=== PATIENT | female | born 1955 | race African-American/Black ===

== ENCOUNTER 2016-09-30 12:57 | Inpatient (IN) | payer OTHER ==
[2016-09-30 13:47] VITALS: BMI 27.7
--- NOTE | 2016-09-30 17:31 | HP ---
COWS - Scale Resting Pulse: 0= [place] 80 or Below Sweatin=Flushed/Facial Moisture Restless Observation: 1= Difficult to Sit Still Pupil Size: 1= Pupils >than Normal Bone or Joint Aches: 2= Severe Diffuse Aches Runny Nose/ Eye Tearin= Nasal Congestion GI Upset > 30mins: 2= Nausea/Diarrhea Tremor Observation: 1= Tremor [place], Not Seen Yawning Observation: 0= None Anxiety or Irritability: 2=Irritable/Anxious Goose Flesh Skin: 0=Smooth Skin COWS Score: 12 CIWA Score - CIWA Score Nausea/Vomitin Muscle Tremors: 2 Agitation: 3 Paroxysmal Sweats: 3 Orientation: 0-Oriented Tacttile Disturbances: 2-Mild Itch/Numbness/Burn Auditory Disturbances: 0-None Visual Disturbances: 0-None Headache: 0-None Present Admission ROS BHS - HPI Chief Complaint: I need help to stop using heroin and alcohol. Allergies/Adverse Reactions: Allergies Allergy/AdvReac Type Severity Reaction Status Date / Time No Known Allergies Allergy Verified 09/30/16 15:14 History of Present Illness: 60 y/o m pt with a h/o chronic alcoholism and heroin dep seeking detox. Exam Limitations: No Limitations - Ebola screening Have you traveled outside of the country in the last 21 days: No Have you had contact with anyone from an Ebola affected area: No Have you been sick,other than usual withdrawal symptoms: No Do you have a fever: No - Review of Systems Constitutional: Loss of Appetite, Malaise, Night Sweats, Changes in sleep EENT: reports: Other (has here own corrective lenses) Respiratory: reports: Wheezing Cardiac: reports: No Symptoms Reported GI: reports: Diarrhea, Nausea : reports: No Symptoms Reported Musculoskeletal: reports: Back Pain Integumentary: reports: No Symptoms Reported Neuro: reports: Tremors Endocrine: reports: No Symptoms Reported Hematology: reports: No Symptoms Reported Psychiatric: reports: Agitated, Anxious, Depressed Other Systems: Reviewed and Negative Patient History - Patient Medical History Hx Anemia: No Hx Asthma: Yes Hx Chronic Obstructive Pulmonary Disease (COPD): No Hx Cancer: No Hx Cardiac Disorders: No Hx Congestive Heart Failure: No Hx Hypertension: Yes (Not currently on meds.) Hx Hypercholesterolemia: No Hx Pacemaker: No HX Cerebrovascular Accident: No Hx Seizures: No Hx Dementia: No Hx Diabetes: No Hx Gastrointestinal Disorders: No Hx Liver Disease: No Hx Genitourinary Disorders: No Hx Sexually Transmitted Disorders: No Hx Renal Disease (ESRD): No Hx Thyroid Disease: No Hx Human Immunodeficiency Virus (HIV): No Hx Hepatitis C: Yes Hx Depression: Yes (anxiety) Hx Suicide Attempt: No Hx Bipolar Disorder: No Hx Schizophrenia: No - Patient Surgical History Past Surgical History: No Hx Neurologic Surgery: No Hx Cataract Extraction: No Hx Cardiac Surgery: No Hx Lung Surgery: No Hx Breast Surgery: No Hx Breast Biopsy: No Hx Abdominal Surgery: No Hx Appendectomy: No Hx Cholecystectomy: No Hx Genitourinary Surgery: No Hx Section: No Hx Orthopedic Surgery: No Hx Hysterectomy: No Anesthesia Reaction: No - PPD History Previous Implant?: Yes Documented Results: Positive w/o proof Implanted On Prior R Admission?: No PPD to be Administered?: No - Reproductive History Patient is a Female of Child Bearing Age (11 -55 yrs old): No Patient : No - Smoking Cessation Smoking history: Current every day smoker Have you smoked in the past 12 months: Yes Aproximately how many cigarettes per day: 10 Cigars Per Day: 0 Hx Chewing Tobacco Use: No Initiated information on smoking cessation: Yes 'Breaking Loose' booklet given: 09/30/16 - Substance & Tx. History Hx Alcohol Use: Yes Hx Substance Use: Yes Substance Use Type: Alcohol, Cocaine, Heroin Hx Substance Use Treatment: Yes ([facility]) - Substances Abused Heroin Route: Inhalation Frequency: Daily Amount used: 4 BAGS Age of first use: 21 Date of Last Use: 09/29/16 Alcohol Route: Oral Frequency: Daily Amount used: 1/2 [place] Age of first use: 15 Date of Last Use: 09/28/16 Crack Route: Smoking Frequency: Daily Amount used: $40 Age of first use: 21 Date of Last Use: 09/29/16 Family Disease History - Family Disease History Family Disease History: Diabetes: Mother, Brother, Other: Father (WAS AN ALCOHOLIC AND ) Admission Physical Exam BHS - Vital Signs Vital Signs: Vital Signs - 24 hr 09/30/16 13:44 Temperature 97.0 F L Pulse Rate 69 Respiratory 18 Rate Blood Pressure 151/74 60 y/o f pt aox3 in nad ambulating and cooperating with exam . - Physical General Appearance: Yes: Appropriately Dressed, Tremorous, Anxious HEENTM: Yes: EOMI, Normocephalic, Normal Voice, ROSINA, Other (multiple missing teeth) Respiratory: Yes: Chest Non-Tender, Lungs Clear, Normal Breath Sounds, No Respiratory Distress Neck: Yes: Supple, Trachea in good position Breast: Yes: Breast Exam Deferred Cardiology: Yes: Regular Rhythm, Regular Rate, S1, S2 Abdominal: Yes: Non Tender, Flat, Soft, Increased Bowel Sounds, Other (hypo- pigmented patch on left abdomen- yeimi) Genitourinary: Yes: Within Normal Limits, Frequency Back: Yes: Decreased Range of Motion Musculoskeletal: Yes: Back pain, Muscle Pain Extremities: Yes: Tremors Neurological: Yes: home health assistant II-XII NML intact, Fully Oriented, Motor Strength 5/5, Normal Response Integumentary: Yes: Moist Lymphatic: Yes: Within Normal Limits - Diagnostic (1) Alcohol dependence Current Visit: No Status: Acute (2) Asthma Current Visit: Yes Status: Chronic Qualifiers: Asthma severity: mild intermittent Asthma complication type: with status asthmaticus Qualified Code(s): J45.22 - Mild intermittent asthma with status asthmaticus (3) Cocaine abuse Current Visit: Yes Status: Chronic (4) Depression (emotion) Current Visit: Yes Status: Chronic (5) Hepatitis C Current Visit: Yes Status: Chronic Qualifiers: Viral hepatitis chronicity: chronic Hepatic coma status: without hepatic coma Qualified Code(s): B18.2 - Chronic viral hepatitis C (6) Nicotine dependence Current Visit: Yes Status: Chronic Qualifiers: Nicotine product type: cigarettes Substance use status: uncomplicated Qualified Code(s): F17.210 - Nicotine dependence, cigarettes, uncomplicated (7) Opioid dependence with withdrawal Current Visit: Yes Status: Chronic Cleared for Admission [facility] - Detox or Rehab [facility] Level of Care: Medically Managed Detox Regimen/Protocol: Methadone/Librium [facility] Breath Alcohol Content Breath Alcohol Content: 0 Urine Pregancy Test - Result Urine Test Results: Negative- NO Line Present Urine Drug Screen - Results Drug Screen Negative: No Urine Drug Screen Results: VICKY-Cocaine, OPI-Opiates
[2016-09-30] MEDS ORDERED: MAGNESIUM HYDROX 2400MG/30ML ORAL SUSPENSION 30 ML CUP PO PRN (17:46)
[2016-09-30] MEDS ORDERED: IBUPROFEN 400 MG TABLET (FP) PO PRN (17:46)
[2016-09-30] MEDS ORDERED: diphenhydrAMINE HCL 50 MG CAPSULE PO PRN (17:46)
[2016-09-30] MEDS ORDERED: guaiFENesin/D-METHORPHAN HB 10 ML UNIT-DOSE CUPS PO PRN (17:46)
[2016-09-30] MEDS ORDERED: hydrOXYzine PAMOATE 25 MG CAPSULE (FP) PO PRN (17:46)
[2016-09-30] MEDS ORDERED: LOPERAMIDE HCL 2 MG CAPSULE PO PRN (17:46)
[2016-09-30] MEDS ORDERED: MENTHOL/PHENOL 1 EACH UD MM PRN (17:46)
[2016-09-30] MEDS ORDERED: MAG HYDROX/AL HYDROX/SIMETH 30 ML UNIT-DOSE CUP PO PRN (17:46)
[2016-09-30] MEDS ORDERED: P-EPHED 60MG/TRIPROLIDI 2.5MG TABLET PO PRN (17:46)
[2016-09-30] MEDS ORDERED: chlordiazePOXIDE HCL 25 MG CAPSULE PO PRN (17:46)
[2016-09-30] MEDS ORDERED: NICOTINE POLACRILEX 4 MG GUM BC PRN (17:46)
[2016-09-30] MEDS ORDERED: MAGNESIUM CITRATE 300 ML BOTTLE PO PRN (17:46)
[2016-09-30] MEDS ORDERED: ACETAMINOPHEN 325 MG TABLET (FP) PO PRN (17:46)
[2016-09-30] MEDS ORDERED: ALBUTEROL SO4 6.7 GM HFA INHALER IH PRN (17:52)
[2016-09-30] MEDS ORDERED: METHADONE HCL 10 MG TABLET (FOR DETOX USE ONLY) PO ONE ×2 (18:15→23:00)
[2016-09-30] MEDS: chlordiazePOXIDE HCL 25 MG CAPSULE PO SCH ×2 (18:25→22:04)
[2016-09-30] MEDS: THIAMINE HCL 100 MG TABLET (FP) PO SCH (22:03)
[2016-09-30 23:17] LABS: URINE APPEARANCE CLEAR; URINE BILIRUBIN NEGATIVE (NEGATIVE); URINE BLOOD NEGATIVE (NEGATIVE); URINE COLOR LTYELLOW; URINE GLUCOSE (UA) NEGATIVE (NEGATIVE); URINE KETONE NEGATIVE (NEGATIVE); URINE NITRITE NEGATIVE (NEGATIVE); URINE PROTEIN NEGATIVE (NEGATIVE); URINE UROBILINOGEN NEGATIVE E.U./dl (0.2-1.0)
[2016-09-30 23:18] LABS: URINE LEUK ESTERASE TRACE (NEGATIVE)
[2016-09-30 23:21] LABS: URINE BACTERIA RARE /hpf (NONE SEEN); URINE MUCUS RARE; URINE RBC 1 /hpf (0-3); URINE WBC 12 /hpf (3-5)
[2016-10-01] MEDS: chlordiazePOXIDE HCL 25 MG CAPSULE PO SCH ×4 (05:34→22:02)
[2016-10-01] MEDS ORDERED: METHADONE HCL 10 MG TABLET (FOR DETOX USE ONLY) PO SCH (10:00)
[2016-10-01 10:02] LABS: MCH 26.3 pg (25.7-33.7); MCHC 32.6 g/dl (32.0-36.0); MEAN CELL VOLUME 80.6 fl (80-96); MEAN PLT VOLUME 9.6 fl (7.5-11.1); PLATELET COUNT 106 K/MM3 (134-434); RDW 14.1 % (11.6-15.6); WHITE BLOOD COUNT 2.7 K/mm3 (4.0-10.0)
[2016-10-01 10:17] LABS: ALBUMIN 2.8 g/dl (3.4-5.0); ANION GAP 6 (8-16); CALCIUM 8.4 mg/dL (8.5-10.1); CO2 26 mmol/L (21-32); GLUCOSE,RANDOM 105 mg/dL (74-106)
[2016-10-01 10:22] LABS: ALK PHOS 76 U/L (45-117); BILIRUBIN,TOTAL 0.5 mg/dL (0.2-1.0); CREATININE 0.8 mg/dL (0.55-1.02); SGOT/AST 52 U/L (15-37); SGPT/ALT 61 U/L (12-78); TOT PROT 5.8 g/dl (6.4-8.2)
[2016-10-01] MEDS: PRENATAL VITAMINS W/ FOLIC ACID TABLET (FP) PO SCH (10:35)
[2016-10-01] MEDS: NICOTINE 21 MG/24 HOURS TOPICAL PATCH TD SCH (10:36)
--- NOTE | 2016-10-01 13:56 | CONSULT ---
[facility] Psychiatric Consult - Data Date of interview: 10/01/16 Admission source: [facility] Identifying data: The patient is single AA mother of 3 grown children, undomiciled,supported by PA admitted to [address] [place] [address] for detox from heroin and cocaine. Substance Abuse History: REpors using cocaine since her teens,daily,heorin since HS,about 3 bags daily.Reports 2 years of abstinence-longest. Medical History: BA,Hep C,HTN. Psychiatric History: Reports no history of psychiatric hospitalizations,no suicidal attempts.Patient was placed on Seroquel ,Trazodone and other psychotropic medications while in Detox/rehab inpatient treatment.No regular psychiatric follow up.Non compliant with treatment due to her drug habbits.Patient is willing to restart Seroquel 100 mg po hs and TRazodone 100 mg po hs. Physical/Sexual Abuse/Trauma History: denies Mental Status Exam - Mental Status Exam Alert and Oriented to: Time, Place, Person Cognitive Function: Grossly Intact Patient Appearance: Unkempt Mood: Anxious Affect: Mood Congruent, Labile Patient Behavior: Cooperative Speech Pattern: Clear Voice Loudness: Normal Thought Process: Goal Oriented Thought Disorder: Not Present Hallucinations: Denies Suicidal Ideation: Denies Homicidal Ideation: Denies Insight/Judgement: Fair Sleep: Difficulty falling asleep Appetite: Fair Muscle strength/Tone: Normal Gait/Station: Normal Psychiatric Findings - Problem List ([place] 1, 2,3) (1) Asthma Current Visit: Yes Status: Chronic Qualifiers: Asthma severity: mild intermittent Asthma complication type: with status asthmaticus Qualified Code(s): J45.22 - Mild intermittent asthma with status asthmaticus (2) Hepatitis C Current Visit: Yes Status: Chronic Qualifiers: Viral hepatitis chronicity: chronic Hepatic coma status: without hepatic coma Qualified Code(s): B18.2 - Chronic viral hepatitis C (3) Nicotine dependence Current Visit: Yes Status: Chronic Qualifiers: Nicotine product type: cigarettes Substance use status: uncomplicated Qualified Code(s): F17.210 - Nicotine dependence, cigarettes, uncomplicated (4) Alcohol dependence Current Visit: Yes Status: Chronic (5) Opioid dependence Current Visit: Yes Status: Chronic (6) Cocaine dependence Current Visit: Yes Status: Chronic (7) Cellulitis Current Visit: No Status: Acute (8) Substance induced mood disorder Current Visit: Yes Status: Chronic (9) HTN (hypertension) Current Visit: Yes Status: Chronic Qualifiers: Hypertension type: essential hypertension Qualified Code(s): I10 - Essential (primary) hypertension - Initial Treatment Plan Initial Treatment Plan: Restart Trazodone 100 mg po hs and Seroquel 100 mg po hs. Will monitor progress.
--- NOTE | 2016-10-01 15:53 | PN ---
[facility] CIWA - CIWA Score Nausea/Vomitin-No Nausea/No Vomiting Muscle Tremors: 3 Anxiety: 4-Mod. Anxious/Guarded Agitation: 3 Paroxysmal Sweats: 3 Orientation: 0-Oriented Tacttile Disturbances: 0-None Auditory Disturbances: 0-None Visual Disturbances: 0-None Headache: 0-None Present CIWA-Ar Total Score: 13 BHS COWS - Scale Resting Pulse: 0= [place] 80 or Below Sweatin=Flushed/Facial Moisture Restless Observation: 1= Difficult to Sit Still Pupil Size: 0= Normal to Room Light Bone or Joint Aches: 2= Severe Diffuse Aches Runny Nose/ Eye Tearin= Runny Nose/Eyes GI Upset > 30mins: 2= Nausea/Diarrhea Tremor Observation of Outstretched Hands: 2= Slight Tremor Visible Yawning Observation: 1= 1-2x During Session Anxiety or Irritability: 2=Irritable/Anxious Goose Flesh Skin: 0=Smooth Skin COWS Score: 14 S Progress Note (SOAP) Subjective: Sweating,interrupted sleep,anxiety,tremors,body aches,restless Objective: 10/01/16 15:48 Vital Signs - 8 hr 10/01/16 10/01/16 10:00 14:00 Temperature 97.7 F 98.1 F Pulse Rate 77 77 Respiratory 18 16 Rate Blood Pressure 122/88 147/93 Laboratory Last Values WBC 2.7 K/mm3 (4.0-10.0) L 10/01/16 07:00 RBC 5.02 M/mm3 (3.60-5.2) 10/01/16 07:00 Hgb 13.2 GM/dL (10.7-15.3) 10/01/16 07:00 Hct 40.5 % (32.4-45.2) 10/01/16 07:00 MCV 80.6 fl (80-96) 10/01/16 07:00 MCHC 32.6 g/dl (32.0-36.0) 10/01/16 07:00 RDW 14.1 % (11.6-15.6) 10/01/16 07:00 Plt Count 106 K/MM3 (134-434) L 10/01/16 07:00 MPV 9.6 fl (7.5-11.1) 10/01/16 07:00 Sodium 141 mmol/L (136-145) 10/01/16 07:00 Potassium 4.0 mmol/L (3.5-5.1) 10/01/16 07:00 Chloride 109 mmol/L (98-107) H 10/01/16 07:00 Carbon Dioxide 26 mmol/L (21-32) 10/01/16 07:00 Anion Gap 6 (8-16) L 10/01/16 07:00 BUN 13 mg/dL (7-18) D 10/01/16 07:00 Creatinine 0.8 mg/dL (0.55-1.02) 10/01/16 07:00 Creat Clearance w eGFR > 60 (>60) 10/01/16 07:00 Random Glucose 105 mg/dL (74-106) 10/01/16 07:00 Calcium 8.4 mg/dL (8.5-10.1) L 10/01/16 07:00 Total Bilirubin 0.5 mg/dL (0.2-1.0) 10/01/16 07:00 AST 52 U/L (15-37) H 10/01/16 07:00 ALT 61 U/L (12-78) 10/01/16 07:00 Alkaline Phosphatase 76 U/L (45-117) 10/01/16 07:00 Total Protein 5.8 g/dl (6.4-8.2) L 10/01/16 07:00 Albumin 2.8 g/dl (3.4-5.0) L 10/01/16 07:00 Urine Color Ltyellow 09/30/16 22:02 Urine Appearance Clear 09/30/16 22:02 Urine pH 6.0 (5.0-8.0) 09/30/16 22:02 Ur Specific [place] 1.020 (1.005-1.025) 09/30/16 22:02 Urine Protein Negative (NEGATIVE) 09/30/16 22:02 Urine Glucose (UA) Negative (NEGATIVE) 09/30/16 22:02 Urine Ketones Negative (NEGATIVE) 09/30/16 22:02 Urine Blood Negative (NEGATIVE) 09/30/16 22:02 Urine Nitrite Negative (NEGATIVE) 09/30/16 22:02 Urine Bilirubin Negative (NEGATIVE) 09/30/16 22:02 Urine Urobilinogen Negative E.U./dl (0.2-1.0) 09/30/16 22:02 Ur Leukocyte Esterase Trace (NEGATIVE) H 09/30/16 22:02 Urine RBC 1 /hpf (0-3) 09/30/16 22:02 Urine WBC 12 /hpf (3-5) 09/30/16 22:02 Ur Epithelial Cells Moderate /hpf (FEW) 09/30/16 22:02 Urine Bacteria Rare /hpf (NONE SEEN) 09/30/16 22:02 Urine Mucus Rare 09/30/16 22:02 RPR Titer Nonreactive (NONREACTIVE) 10/01/16 07:00 labs noted Assessment: 10/01/16 15:56 Withdrawal sx. Plan: Continue detox
[2016-10-01] MEDS: traZODone HCL 100 MG TABLET (FP) PO SCH (22:02)
[2016-10-01] MEDS: QUEtiapine FUMARATE 100 MG TABLET (FP) PO SCH (22:02)
[2016-10-01] MEDS: THIAMINE HCL 100 MG TABLET (FP) PO SCH (22:03)
[2016-10-02] MEDS: chlordiazePOXIDE HCL 25 MG CAPSULE PO SCH ×2 (05:17→10:17)
[2016-10-02] MEDS: METHADONE HCL 5 MG TABLET (FOR DETOX USE ONLY) PO SCH (10:17)
[2016-10-02] MEDS: PRENATAL VITAMINS W/ FOLIC ACID TABLET (FP) PO SCH (10:17)
[2016-10-02] MEDS: NICOTINE 21 MG/24 HOURS TOPICAL PATCH TD SCH (10:17)
--- NOTE | 2016-10-02 11:28 | PN ---
[facility] CIWA - CIWA Score Nausea/Vomitin Muscle Tremors: 3 Anxiety: 3 Agitation: 2 Paroxysmal Sweats: 1-Minimal Palms Moist Orientation: 0-Oriented Tacttile Disturbances: 1-Very Mild Itch/Numbness Auditory Disturbances: 1-Very Mild Visual Disturbances: 1-Very Mild Sensitivity Headache: 2-Mild CIWA-Ar Total Score: 17 BHS COWS - Scale Resting Pulse: 1= [place] 81-100 Sweatin= Chills/Flushing Restless Observation: 3= Extraneous Movement Pupil Size: 1= Pupils >than Normal Bone or Joint Aches: 2= Severe Diffuse Aches Runny Nose/ Eye Tearin= Runny Nose/Eyes GI Upset > 30mins: 3= Vomiting/Diarrhea Tremor Observation of Outstretched Hands: 2= Slight Tremor Visible Yawning Observation: 1= 1-2x During Session Anxiety or Irritability: 2=Irritable/Anxious Goose Flesh Skin: 0=Smooth Skin COWS Score: 18 [facility] Progress Note (SOAP) Subjective: ALERT,IRRITABLE,ANXIOUS,INTERRUPTED SLEEP,TREMOR,PAIN IN THE BODY AND BACK Objective: 10/02/16 11:26 Vital Signs Temperature 97.5 F L 10/02/16 10:18 Pulse Rate 83 10/02/16 10:18 Respiratory Rate 16 10/02/16 10:18 Blood Pressure 132/81 10/02/16 10:18 O2 Sat by Pulse Oximetry (%) Laboratory Last Values WBC 2.7 K/mm3 (4.0-10.0) L 10/01/16 07:00 RBC 5.02 M/mm3 (3.60-5.2) 10/01/16 07:00 Hgb 13.2 GM/dL (10.7-15.3) 10/01/16 07:00 Hct 40.5 % (32.4-45.2) 10/01/16 07:00 MCV 80.6 fl (80-96) 10/01/16 07:00 MCHC 32.6 g/dl (32.0-36.0) 10/01/16 07:00 RDW 14.1 % (11.6-15.6) 10/01/16 07:00 Plt Count 106 K/MM3 (134-434) L 10/01/16 07:00 MPV 9.6 fl (7.5-11.1) 10/01/16 07:00 Sodium 141 mmol/L (136-145) 10/01/16 07:00 Potassium 4.0 mmol/L (3.5-5.1) 10/01/16 07:00 Chloride 109 mmol/L (98-107) H 10/01/16 07:00 Carbon Dioxide 26 mmol/L (21-32) 10/01/16 07:00 Anion Gap 6 (8-16) L 10/01/16 07:00 BUN 13 mg/dL (7-18) D 10/01/16 07:00 Creatinine 0.8 mg/dL (0.55-1.02) 10/01/16 07:00 Creat Clearance w eGFR > 60 (>60) 10/01/16 07:00 Random Glucose 105 mg/dL (74-106) 10/01/16 07:00 Calcium 8.4 mg/dL (8.5-10.1) L 10/01/16 07:00 Total Bilirubin 0.5 mg/dL (0.2-1.0) 10/01/16 07:00 AST 52 U/L (15-37) H 10/01/16 07:00 ALT 61 U/L (12-78) 10/01/16 07:00 Alkaline Phosphatase 76 U/L (45-117) 10/01/16 07:00 Total Protein 5.8 g/dl (6.4-8.2) L 10/01/16 07:00 Albumin 2.8 g/dl (3.4-5.0) L 10/01/16 07:00 Urine Color Ltyellow 09/30/16 22:02 Urine Appearance Clear 09/30/16 22:02 Urine pH 6.0 (5.0-8.0) 09/30/16 22:02 Ur Specific [place] 1.020 (1.005-1.025) 09/30/16 22:02 Urine Protein Negative (NEGATIVE) 09/30/16 22:02 Urine Glucose (UA) Negative (NEGATIVE) 09/30/16 22:02 Urine Ketones Negative (NEGATIVE) 09/30/16 22:02 Urine Blood Negative (NEGATIVE) 09/30/16 22:02 Urine Nitrite Negative (NEGATIVE) 09/30/16 22:02 Urine Bilirubin Negative (NEGATIVE) 09/30/16 22:02 Urine Urobilinogen Negative E.U./dl (0.2-1.0) 09/30/16 22:02 Ur Leukocyte Esterase Trace (NEGATIVE) H 09/30/16 22:02 Urine RBC 1 /hpf (0-3) 09/30/16 22:02 Urine WBC 12 /hpf (3-5) 09/30/16 22:02 Ur Epithelial Cells Moderate /hpf (FEW) 09/30/16 22:02 Urine Bacteria Rare /hpf (NONE SEEN) 09/30/16 22:02 Urine Mucus Rare 09/30/16 22:02 RPR Titer Nonreactive (NONREACTIVE) 10/01/16 07:00 Assessment: 10/02/16 11:26 WITHDRAWAL SYMPTOM Plan: CONTINUE DETOX,WBC IS 2700,LEUKOPENIA,REPEAT CBC IN AM
[2016-10-02] MEDS: chlordiazePOXIDE 5 MG CAPSULE PO SCH ×2 (16:44→22:12)
[2016-10-02] MEDS: traZODone HCL 100 MG TABLET (FP) PO SCH (22:12)
[2016-10-02] MEDS: THIAMINE HCL 100 MG TABLET (FP) PO SCH (22:12)
[2016-10-02] MEDS: QUEtiapine FUMARATE 100 MG TABLET (FP) PO SCH (22:12)
[2016-10-03] MEDS: chlordiazePOXIDE 5 MG CAPSULE PO SCH ×2 (05:34→10:23)
[2016-10-03] MEDS: PRENATAL VITAMINS W/ FOLIC ACID TABLET (FP) PO SCH (10:23)
[2016-10-03] MEDS: METHADONE HCL 5 MG TABLET (FOR DETOX USE ONLY) PO SCH (10:23)
[2016-10-03] MEDS: NICOTINE 21 MG/24 HOURS TOPICAL PATCH TD SCH (10:23)
[2016-10-03 10:42] LABS: MCHC 32.2 g/dl (32.0-36.0); MEAN CELL VOLUME 80.7 fl (80-96); RDW 14.6 % (11.6-15.6); WHITE BLOOD COUNT 3.8 K/mm3 (4.0-10.0)
[2016-10-03 11:30] LABS: PLATELET COUNT 62 K/MM3 (134-434); PLATELET ESTIMATE DECREASED (NORMAL)
--- NOTE | 2016-10-03 12:19 | PN ---
BHS Progress Note (SOAP) Subjective: Sweating, Fatigue, Lower Back Ache. Objective: PT. A & O X 2 (DISORIENTED ABOUT DAY / DATE). PT. OBSERVED AMBULATING ON UNIT. NO ACUTE DISTRESS. 10/03/16 12:15 Vital Signs Temperature 97.7 F 10/03/16 06:00 Pulse Rate 78 10/03/16 06:00 Respiratory Rate 18 10/03/16 06:00 Blood Pressure 114/78 10/03/16 06:00 O2 Sat by Pulse Oximetry (%) Laboratory Tests 09/30/16 10/01/16 10/01/16 22:02 07:00 07:00 WBC 2.7 L RBC 5.02 Hgb 13.2 Hct 40.5 MCV 80.6 MCHC 32.6 RDW 14.1 Plt Count 106 L MPV 9.6 Platelet Estimate Platelet Comment Sodium 141 Potassium 4.0 Chloride 109 H Carbon Dioxide 26 Anion Gap 6 L BUN 13 D Creatinine 0.8 Creat Clearance w eGFR > 60 Random Glucose 105 Calcium 8.4 L Total Bilirubin 0.5 AST 52 H ALT 61 Alkaline Phosphatase 76 Total Protein 5.8 L Albumin 2.8 L Urine Color Ltyellow Urine Appearance Clear Urine pH 6.0 Ur Specific [place] 1.020 Urine Protein Negative Urine Glucose (UA) Negative Urine Ketones Negative Urine Blood Negative Urine Nitrite Negative Urine Bilirubin Negative Urine Urobilinogen Negative Ur Leukocyte Esterase Trace H Urine RBC 1 Urine WBC 12 Ur Epithelial Cells Moderate Urine Bacteria Rare Urine Mucus Rare RPR Titer 10/01/16 10/03/16 07:00 07:40 WBC 3.8 L D RBC 5.19 Hgb 13.5 Hct 41.8 MCV 80.7 MCHC 32.2 RDW 14.6 Plt Count 62 L D MPV 10.0 Platelet Estimate Decreased Platelet Comment No clumping noted Sodium Potassium Chloride Carbon Dioxide Anion Gap BUN Creatinine Creat Clearance w eGFR Random Glucose Calcium Total Bilirubin AST ALT Alkaline Phosphatase Total Protein Albumin Urine Color Urine Appearance Urine pH Ur Specific [place] Urine Protein Urine Glucose (UA) Urine Ketones Urine Blood Urine Nitrite Urine Bilirubin Urine Urobilinogen Ur Leukocyte Esterase Urine RBC Urine WBC Ur Epithelial Cells Urine Bacteria Urine Mucus RPR Titer Nonreactive LABS NOTED. RESULTS OF REPEAT CBC DRAWN THIS AM NOTED. 10/03/16 12:20 Assessment: 10/03/16 12:17 WITHDRAWAL SYMPTOMS. Plan: CONTINUE DETOX. ADVISED PATIENT TO FOLLOW-UP WITH [facility]ATION [facility]INE[facility] AFTER DISCHARGE FOR GENERAL MEDICAL ASSESSMENT AND FOR LOW PLATELET LEVEL.
[2016-10-03] MEDS: chlordiazePOXIDE HCL 10 MG CAPSULE PO SCH ×2 (17:37→22:11)
[2016-10-03] MEDS: traZODone HCL 100 MG TABLET (FP) PO SCH (22:09)
[2016-10-03] MEDS: QUEtiapine FUMARATE 100 MG TABLET (FP) PO SCH (22:09)
[2016-10-03] MEDS: THIAMINE HCL 100 MG TABLET (FP) PO SCH (22:10)
--- NOTE | 2016-10-03 22:19 | EKG ---
Test Reason : Blood Pressure : / mmHG Vent. Rate : 055 BPM Atrial Rate : 055 BPM P-R Int : 144 ms QRS Dur : 082 ms QT Int : 436 ms P-R-T Axes : 062 049 029 degrees QTc Int : 417 ms SINUS BRADYCARDIA WITH MARKED SINUS ARRHYTHMIA OTHERWISE NORMAL ECG WHEN COMPARED WITH ECG OF 17-JUN-2016 20:39, NO SIGNIFICANT CHANGE WAS FOUND Confirmed by BIANCA RUEDA MD ([id number]) on 10/03/2016 10:19:03 PM Referred By: Confirmed By:BIANCA RUEDA MD
[2016-10-04] MEDS: chlordiazePOXIDE HCL 10 MG CAPSULE PO SCH ×2 (07:17→10:17)
--- NOTE | 2016-10-04 09:33 | PN ---
[facility] Progress Note (SOAP) Subjective: alert,irritable,anxious,interrupted sleep, Objective: 10/04/16 09:28 Vital Signs Temperature 96 F L 10/04/16 05:00 Pulse Rate 70 10/04/16 05:00 Respiratory Rate 18 10/04/16 05:00 Blood Pressure 96/52 10/04/16 05:00 O2 Sat by Pulse Oximetry (%) Laboratory Last Values WBC 3.8 K/mm3 (4.0-10.0) L D 10/03/16 07:40 RBC 5.19 M/mm3 (3.60-5.2) 10/03/16 07:40 Hgb 13.5 GM/dL (10.7-15.3) 10/03/16 07:40 Hct 41.8 % (32.4-45.2) 10/03/16 07:40 MCV 80.7 fl (80-96) 10/03/16 07:40 MCHC 32.2 g/dl (32.0-36.0) 10/03/16 07:40 RDW 14.6 % (11.6-15.6) 10/03/16 07:40 Plt Count 62 K/MM3 (134-434) L D 10/03/16 07:40 MPV 10.0 fl (7.5-11.1) 10/03/16 07:40 Platelet Estimate Decreased (NORMAL) 10/03/16 07:40 Platelet Comment No clumping noted 10/03/16 07:40 Sodium 141 mmol/L (136-145) 10/01/16 07:00 Potassium 4.0 mmol/L (3.5-5.1) 10/01/16 07:00 Chloride 109 mmol/L (98-107) H 10/01/16 07:00 Carbon Dioxide 26 mmol/L (21-32) 10/01/16 07:00 Anion Gap 6 (8-16) L 10/01/16 07:00 BUN 13 mg/dL (7-18) D 10/01/16 07:00 Creatinine 0.8 mg/dL (0.55-1.02) 10/01/16 07:00 Creat Clearance w eGFR > 60 (>60) 10/01/16 07:00 Random Glucose 105 mg/dL (74-106) 10/01/16 07:00 Calcium 8.4 mg/dL (8.5-10.1) L 10/01/16 07:00 Total Bilirubin 0.5 mg/dL (0.2-1.0) 10/01/16 07:00 AST 52 U/L (15-37) H 10/01/16 07:00 ALT 61 U/L (12-78) 10/01/16 07:00 Alkaline Phosphatase 76 U/L (45-117) 10/01/16 07:00 Total Protein 5.8 g/dl (6.4-8.2) L 10/01/16 07:00 Albumin 2.8 g/dl (3.4-5.0) L 10/01/16 07:00 Urine Color Ltyellow 09/30/16 22:02 Urine Appearance Clear 09/30/16 22:02 Urine pH 6.0 (5.0-8.0) 09/30/16 22:02 Ur Specific [place] 1.020 (1.005-1.025) 09/30/16 22:02 Urine Protein Negative (NEGATIVE) 09/30/16 22:02 Urine Glucose (UA) Negative (NEGATIVE) 09/30/16 22:02 Urine Ketones Negative (NEGATIVE) 09/30/16 22:02 Urine Blood Negative (NEGATIVE) 09/30/16 22:02 Urine Nitrite Negative (NEGATIVE) 09/30/16 22:02 Urine Bilirubin Negative (NEGATIVE) 09/30/16 22:02 Urine Urobilinogen Negative E.U./dl (0.2-1.0) 09/30/16 22:02 Ur Leukocyte Esterase Trace (NEGATIVE) H 09/30/16 22:02 Urine RBC 1 /hpf (0-3) 09/30/16 22:02 Urine WBC 12 /hpf (3-5) 09/30/16 22:02 Ur Epithelial Cells Moderate /hpf (FEW) 09/30/16 22:02 Urine Bacteria Rare /hpf (NONE SEEN) 09/30/16 22:02 Urine Mucus Rare 09/30/16 22:02 RPR Titer Nonreactive (NONREACTIVE) 10/01/16 07:00 Assessment: 10/04/16 09:30 withdrawal symptom leukopenia and thrombocytopenia probably due to alcohol dependence and also hepatitis c patient hes been seen by pmd and [facility] machine operator in [facility] will follow with her pmd after discharge 10/04/16 09:33 Plan: continue detox,discharge in am
[2016-10-04] MEDS ORDERED: METHADONE HCL 10 MG TABLET (FOR DETOX USE ONLY) PO SCH (10:00)
[2016-10-04] MEDS: NICOTINE 21 MG/24 HOURS TOPICAL PATCH TD SCH (10:18)
[2016-10-04] MEDS: PRENATAL VITAMINS W/ FOLIC ACID TABLET (FP) PO SCH (10:18)
--- NOTE | 2016-10-04 12:08 | PN ---
Psychiatric Progress Note Vital Signs: Vital Signs Period Temp Pulse Resp BP Sys/Patrick Pulse Ox Last 24 Hr 96 F-97.9 F 70-104 16-74 96-129/52-79 Date of Session: 10/04/16 Chief Complaint:: Insomnia HPI: Patient reports not falling asleep well inspite of taking : Trazodone 100mg p[o0q gs. Seroquel 100mg pom qhs Current Medications: Active Medications Generic Name Dose Route Start Last Admin Trade Name Freq PRN Reason Stop Dose Admin Acetaminophen 650 mg 09/30/16 17:46 10/02/16 10:18 Tylenol - PO 650 mg Q4H PRN Administration FEVER OR PAIN Al Hydroxide/Mg Hydroxide 30 ml 09/30/16 17:46 Mylanta Oral Suspension - PO Q6H PRN DYSPEPSIA Albuterol Sulfate 2 puff 09/30/16 17:52 Ventolin Hfa Inhaler - IH Q4H PRN SHORT OF BREATH/WHEEZING Diphenhydramine HCl 50 mg 09/30/16 17:46 Benadryl - PO HSMR1 PRN INSOMNIA Eucalyptus/Menthol/Phenol/Sorbitol 1 each 09/30/16 17:46 Cepastat Lozenge - MM Q4H PRN SORE THROAT Guaifenesin 10 ml 09/30/16 17:46 Robitussin Dm - PO Q6H PRN COUGH Hydroxyzine Pamoate 25 mg 09/30/16 17:46 Vistaril - PO Q4H PRN AGITATION Ibuprofen 400 mg 09/30/16 17:46 Motrin - PO Q6H PRN SEVERE PAIN Loperamide HCl 4 mg 09/30/16 17:46 Imodium - PO Q6H PRN DIARRHEA Magnesium Citrate 300 ml 09/30/16 17:46 Citroma - PO Q48H PRN CONSTIPATION Magnesium Hydroxide 30 ml 09/30/16 17:46 Milk Of Magnesia - PO DAILY PRN CONSTIPATION Methadone HCl 5 mg 10/05/16 06:00 Dolophine - PO 10/05/16 06:01 DAILY@0600 OLIVIA Nicotine 21 mg 10/01/16 10:00 10/04/16 10:18 Nicoderm Patch - TD Not Given DAILY OLIVIA Nicotine Polacrilex 4 mg 09/30/16 17:46 Nicorette Gum - BC Q2H PRN NICOTINE REPLACEMENT RX Multivit/Folic Acid/Iron 1 tab 10/01/16 10:00 10/04/16 10:18 Vitamins (Sjr) - PO 1 tab DAILY OLIVIA Administration Pseudoephedrine/Triprolidine 1 combo 09/30/16 17:46 Actifed - PO TID PRN NASAL CONGESTION Quetiapine Fumarate 100 mg 10/01/16 22:00 10/03/16 22:09 Seroquel - PO 100 mg HS OLIVIA Administration Thiamine HCl 100 mg 09/30/16 22:00 10/03/16 22:10 Vitamin B1 - PO 100 mg HS OLIVIA Administration Trazodone HCl 100 mg 10/01/16 22:00 10/03/16 22:09 Desyrel - PO 100 mg HS OLIVIA Administration Medication(s) Change(s): Add Benadryl 50mg po qhs prn for insomnia Mental Status Exam - Mental Status Exam Alert and Oriented to: Person Cognitive Function: Fair Patient Appearance: Well Groomed Mood: Apprehensive Affect: Mood Congruent Patient Behavior: Cooperative Speech Pattern: Appropriate Voice Loudness: Normal Thought Process: Circumstantial, Goal Oriented Thought Disorder: Being Controlled Hallucinations: Denies Suicidal Ideation: Denies Homicidal Ideation: Denies Insight/Judgement: Fair Sleep: Difficulty falling asleep Appetite: Weight loss Muscle strength/Tone: Normal Gait/Station: Normal Additional Comments: Add Benadryl 50mg po qhs prn for insomnia Psychiatric Treatment Plan - Problem List (1) Alcohol dependence Current Visit: Yes Qualifiers: Substance use status: uncomplicated Qualified Code(s): F10.20 - Alcohol dependence, uncomplicated (2) Alcohol dependence with uncomplicated withdrawal Current Visit: Yes (3) Cocaine dependence Current Visit: Yes Qualifiers: Substance use status: uncomplicated Qualified Code(s): F14.20 - Cocaine dependence, uncomplicated (4) Opioid dependence with withdrawal Current Visit: Yes (5) Psychoactive substance-induced mood disorder Current Visit: Yes (6) Substance induced mood disorder Current Visit: Yes (7) Cocaine abuse Current Visit: Yes (8) Nicotine dependence Current Visit: Yes Qualifiers: Nicotine product type: cigarettes Substance use status: uncomplicated Qualified Code(s): F17.210 - Nicotine dependence, cigarettes, uncomplicated (9) Opioid dependence Current Visit: Yes (10) Major depressive disorder Current Visit: No Comment: History. Initial treatment plan: Add Benadryl 50mg po qhs prn for insomnia
[2016-10-04] MEDS: THIAMINE HCL 100 MG TABLET (FP) PO SCH (22:19)
[2016-10-04] MEDS: traZODone HCL 100 MG TABLET (FP) PO SCH (22:20)
[2016-10-04] MEDS: QUEtiapine FUMARATE 100 MG TABLET (FP) PO SCH (22:20)
[2016-10-05] MEDS ORDERED: METHADONE HCL 5 MG TABLET (FOR DETOX USE ONLY) PO SCH (06:00)
[2016-10-05 06:37] VITALS: BP 125/86; PULSE 68; TEMP 98.4
--- NOTE | 2016-10-05 08:13 | PN ---
S Progress Note (SOAP) Subjective: alert,no complaint Objective: 10/05/16 08:12 Vital Signs Temperature 98.4 F 10/05/16 06:00 Pulse Rate 68 10/05/16 06:00 Respiratory Rate 18 10/05/16 06:00 Blood Pressure 125/86 10/05/16 06:00 O2 Sat by Pulse Oximetry (%) Assessment: 10/05/16 08:12 detox completed,no withdrawal symptom Plan: discharge today,follow uo with after care program as arrangement
--- NOTE | 2016-10-05 08:15 | DS ---
[facility] Detox Discharge Summary Admission Date: 09/30/16 Discharge Date: 10/05/16 - History Present History: Alcohol Dependence, Cocaine Dependence, Opioid Dependence Additional Comments: follow up with clinic at [facility] Pertinent Past History: asthma hepatitis c nicotine dependence leukopenia thrombocytopenia - Physical Exam Results Vital Signs: Vital Signs Temperature 98.4 F 10/05/16 06:00 Pulse Rate 68 10/05/16 06:00 Respiratory Rate 18 10/05/16 06:00 Blood Pressure 125/86 10/05/16 06:00 O2 Sat by Pulse Oximetry (%) - Treatment Hospital Course: Detox Protocol Followed, Detoxed Safely, Responded well, Discharged Condition Good Patient has Accepted a Rehab Referral to: declined - Medication Discharge Medications: Ambulatory Orders Albuterol Sulfate Inhaler - [Ventolin HFA Inhaler -] 2 puff IH Q4H PRN #1 inhaler 06/23/16 Quetiapine Fumarate [Seroquel] 100 mg PO HS #30 tablet 10/04/16 Trazodone HCl [Desyrel -] 100 mg PO HS #30 tablet 10/04/16 - Diagnosis (1) Leukopenia Current Visit: Yes Status: Acute (2) Alcohol dependence with uncomplicated withdrawal Current Visit: Yes Status: Acute (3) Cocaine dependence Current Visit: Yes Status: Acute Qualifiers: Substance use status: uncomplicated Qualified Code(s): F14.20 - Cocaine dependence, uncomplicated (4) Opioid dependence with withdrawal Current Visit: Yes Status: Acute (5) Asthma Current Visit: Yes Status: Chronic Qualifiers: Asthma severity: mild intermittent Asthma complication type: with status asthmaticus Qualified Code(s): J45.22 - Mild intermittent asthma with status asthmaticus (6) Hepatitis C Current Visit: Yes Status: Chronic Qualifiers: Viral hepatitis chronicity: chronic Hepatic coma status: without hepatic coma Qualified Code(s): B18.2 - Chronic viral hepatitis C (7) Nicotine dependence Current Visit: Yes Status: Chronic Qualifiers: Nicotine product type: cigarettes Substance use status: uncomplicated Qualified Code(s): F17.210 - Nicotine dependence, cigarettes, uncomplicated (8) Thrombocytopenia Current Visit: Yes Status: Acute (9) Psychoactive substance-induced mood disorder Current Visit: Yes Status: Acute (10) Substance induced mood disorder Current Visit: Yes Status: Acute - AMA Did Patient Leave Against Medical Advice: No
== END 2016-10-05 09:40 | disposition home or self-care (01) | DRG 773 ==
LOC: YASAS 12:57 → Y6N 16:37
PROVIDERS: ADMIT Internal Medicine; ATTEND Internal Medicine
PROC: HZ2ZZZZ Detoxification Services for Substance Abuse Treatment (ICD-10-PCS; principal; 2016-09-30)
DX: F11.23 Opioid dependence with withdrawal (principal); F10.230 Alcohol dependence with withdrawal, uncomplicated; F14.20 Cocaine dependence, uncomplicated; F17.210 Nicotine dependence, cigarettes, uncomplicated; F19.24 Other psychoactive substance dependence with psychoactive substance-induced mood disorder; F33.9 Major depressive disorder, recurrent, unspecified; J45.22 Mild intermittent asthma with status asthmaticus; B18.2 Chronic viral hepatitis C; G47.00 Insomnia, unspecified; D69.6 Thrombocytopenia, unspecified; D72.819 Decreased white blood cell count, unspecified
CPT/HCPCS: 36415; 80053; 81003; 81015; 85027; 86593; 93005; 93010

== ENCOUNTER 2018-05-06 17:31 | Inpatient (IN) | payer OTHER ==
[2018-05-06 18:24] VITALS: BMI 26.4
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
[2018-05-06] MEDS ORDERED: MENTHOL/PHENOL 1 EACH UD MM PRN (20:36)
[2018-05-06] MEDS ORDERED: P-EPHED 60MG/TRIPROLIDI 2.5MG TABLET PO PRN (20:36)
[2018-05-06] MEDS ORDERED: IBUPROFEN 400 MG TABLET (FP) PO PRN (20:36)
[2018-05-06] MEDS ORDERED: MAGNESIUM CITRATE 300 ML BOTTLE PO PRN (20:36)
[2018-05-06] MEDS ORDERED: MAGNESIUM HYDROX 2400MG/30ML ORAL SUSPENSION 30 ML CUP PO PRN (20:36)
[2018-05-06] MEDS ORDERED: ACETAMINOPHEN 325 MG TABLET (FP) PO PRN (20:36)
[2018-05-06] MEDS ORDERED: NICOTINE POLACRILEX 2 MG GUM BC PRN (20:36)
[2018-05-06] MEDS ORDERED: LOPERAMIDE HCL 2 MG CAPSULE PO PRN (20:36)
[2018-05-06] MEDS ORDERED: METHADONE HCL 10 MG TABLET (FOR DETOX USE ONLY) PO ONE ×2 (20:36→23:00)
[2018-05-06] MEDS ORDERED: MAG HYDROX/AL HYDROX/SIMETH 30 ML UNIT-DOSE CUP PO PRN (20:36)
[2018-05-06] MEDS ORDERED: guaiFENesin/D-METHORPHAN HB 10 ML UNIT-DOSE CUPS PO PRN (20:36)
[2018-05-06] MEDS ORDERED: TRIMETHOBENZAMIDE HCL 200MG/2ML INJ IM PRN (20:39)
[2018-05-06] MEDS ORDERED: cloNIDine HCL 0.1 MG TABLET PO ONE (20:39)
[2018-05-06] MEDS ORDERED: MELATONIN 5 MG TABLETS PO PRN (22:00)
[2018-05-06] MEDS: ALBUTEROL SO4 8 GM HFA INHALER IH PRN (22:36)
[2018-05-06] MEDS: THIAMINE HCL 100 MG TABLET (FP) PO SCH (22:58)
[2018-05-06] MEDS: diazePAM 5 MG TABLET PO PRN (22:59)
[2018-05-07] MEDS ORDERED: METHADONE HCL 10 MG TABLET (FOR DETOX USE ONLY) PO ONE (10:00)
[2018-05-07] MEDS: LISINOPRIL 10 MG TABLET (FP) PO SCH (10:11)
[2018-05-07] MEDS: PRENATAL VITAMINS W/ FOLIC ACID TABLET (FP) PO SCH (10:11)
[2018-05-07] MEDS: NICOTINE 14 MG/24 HOURS TOPICAL PATCH TD SCH (10:11)
[2018-05-07] MEDS: diazePAM 5 MG TABLET PO PRN ×2 (10:13→22:29)
[2018-05-07 11:16] LABS: ALBUMIN 3.1 g/dl (3.4-5.0); ALK PHOS 91 U/L (45-117); ANION GAP 8 MMOL/L (8-16); BILIRUBIN,TOTAL 0.4 mg/dL (0.2-1); BLOOD UREA NITROGEN 26 mg/dL (7-18); CALCIUM 8.3 mg/dL (8.5-10.1); CHLORIDE 107 mmol/L (98-107); CO2 27 mmol/L (21-32); CREATININE 1.1 mg/dL (0.55-1.3); GLUCOSE,RANDOM 91 mg/dL (74-106); POTASSIUM 3.8 mmol/L (3.5-5.1); SGOT/AST 39 U/L (15-37); SGPT/ALT 46 U/L (13-61); SODIUM 142 mmol/L (136-145); TOT PROT 6.4 g/dl (6.4-8.2)
[2018-05-07 11:22] LABS: MCH 26.7 pg (25.7-33.7); MCHC 33.4 g/dl (32.0-36.0); MEAN CELL VOLUME 80.1 fl (80-96); MEAN PLT VOLUME 9.5 fl (7.5-11.1); PLATELET COUNT 146 K/MM3 (134-434); RDW 14.4 % (11.6-15.6)
--- NOTE | 2018-05-07 12:17 | PN ---
BHS COWS - Scale Resting Pulse: 0= [place] 80 or Below Sweatin= Chills/Flushing Restless Observation: 1= Difficult to Sit Still Pupil Size: 1= Pupils >than Normal Bone or Joint Aches: 2= Severe Diffuse Aches Runny Nose/ Eye Tearin= Nasal Congestion GI Upset > 30mins: 1= Stomach Cramp Tremor Observation of Outstretched Hands: 1= Tremor [place], Not Seen Yawning Observation: 1= 1-2x During Session Anxiety or Irritability: 1=Feels Anxious/Irritable Goose Flesh Skin: 0=Smooth Skin COWS Score: 10 BHS Progress Note (SOAP) Subjective: body aches joints pain tremor sweating trouble sleep throughout the night Objective: 05/07/18 12:16 Vital Signs Temperature 96 F L 05/07/18 09:08 Pulse Rate 90 05/07/18 09:08 Respiratory Rate 20 05/07/18 09:08 Blood Pressure 110/70 05/07/18 09:08 O2 Sat by Pulse Oximetry (%) Laboratory Last Values WBC 4.0 K/mm3 (4.0-10.0) 05/07/18 07:20 RBC 4.50 M/mm3 (3.60-5.2) 05/07/18 07:20 Hgb 12.0 GM/dL (10.7-15.3) 05/07/18 07:20 Hct 36.0 % (32.4-45.2) 05/07/18 07:20 MCV 80.1 fl (80-96) 05/07/18 07:20 MCH 26.7 pg (25.7-33.7) 05/07/18 07:20 MCHC 33.4 g/dl (32.0-36.0) 05/07/18 07:20 RDW 14.4 % (11.6-15.6) 05/07/18 07:20 Plt Count 146 K/MM3 (134-434) D 05/07/18 07:20 MPV 9.5 fl (7.5-11.1) 05/07/18 07:20 Sodium 142 mmol/L (136-145) 05/07/18 07:20 Potassium 3.8 mmol/L (3.5-5.1) 05/07/18 07:20 Chloride 107 mmol/L (98-107) 05/07/18 07:20 Carbon Dioxide 27 mmol/L (21-32) 05/07/18 07:20 Anion Gap 8 MMOL/L (8-16) 05/07/18 07:20 BUN 26 mg/dL (7-18) H 05/07/18 07:20 Creatinine 1.1 mg/dL (0.55-1.3) 05/07/18 07:20 Creat Clearance w eGFR 50.67 (>60) 05/07/18 07:20 Random Glucose 91 mg/dL (74-106) 05/07/18 07:20 Calcium 8.3 mg/dL (8.5-10.1) L 05/07/18 07:20 Total Bilirubin 0.4 mg/dL (0.2-1) 05/07/18 07:20 AST 39 U/L (15-37) H 05/07/18 07:20 ALT 46 U/L (13-61) 05/07/18 07:20 Alkaline Phosphatase 91 U/L (45-117) 05/07/18 07:20 Total Protein 6.4 g/dl (6.4-8.2) 05/07/18 07:20 Albumin 3.1 g/dl (3.4-5.0) L 05/07/18 07:20 lab noted Assessment: 05/07/18 12:16 withdrawal sx Plan: continue detox
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
[2018-05-07] MEDS: THIAMINE HCL 100 MG TABLET (FP) PO SCH (22:29)
[2018-05-07] MEDS: QUEtiapine FUMARATE 100 MG TABLET (FP) PO SCH (22:29)
[2018-05-07] MEDS: ALBUTEROL SO4 8 GM HFA INHALER IH PRN (22:30)
[2018-05-08] MEDS ORDERED: METHADONE HCL 5 MG TABLET (FOR DETOX USE ONLY) PO ONE (10:00)
[2018-05-08] MEDS: LISINOPRIL 10 MG TABLET (FP) PO SCH (10:01)
[2018-05-08] MEDS: PRENATAL VITAMINS W/ FOLIC ACID TABLET (FP) PO SCH (10:01)
[2018-05-08] MEDS: NICOTINE 14 MG/24 HOURS TOPICAL PATCH TD SCH (11:23)
--- NOTE | 2018-05-08 12:19 | PN ---
BHS COWS - Scale Resting Pulse: 1= [place] 81-100 Sweatin= Chills/Flushing Restless Observation: 0= Sits Still Pupil Size: 0= Normal to Room Light Bone or Joint Aches: 0= None Runny Nose/ Eye Tearin= None GI Upset > 30mins: 2= Nausea/Diarrhea Tremor Observation of Outstretched Hands: 0= None Yawning Observation: 1= 1-2x During Session Anxiety or Irritability: 2=Irritable/Anxious Goose Flesh Skin: 3=Piloerection COWS Score: 10 BHS Progress Note (SOAP) Subjective: Nausea, Stomach Cramping, Sweating, H/A, Interrupted Sleep. Objective: PATIENT A & O X 2 (UNCERTAIN ABOUT CURRENT DAY / DATE). PATIENT OBSERVED AMBULATING ON UNIT. IN NO ACUTE DISTRESS. PATIENT DENIES ANY URINARY COMPLAINTS (BURNING, PAIN, FREQUENCY, URGENCY, HESITANCY). 05/08/18 12:15 Vital Signs Temperature 98.7 F 05/08/18 09:17 Pulse Rate 72 05/08/18 09:17 Respiratory Rate 18 05/08/18 09:17 Blood Pressure 112/73 05/08/18 09:17 O2 Sat by Pulse Oximetry (%) Laboratory Tests 05/07/18 05/07/18 05/07/18 07:20 07:20 07:20 WBC 4.0 RBC 4.50 Hgb 12.0 Hct 36.0 MCV 80.1 MCH 26.7 MCHC 33.4 RDW 14.4 Plt Count 146 D MPV 9.5 Sodium 142 Potassium 3.8 Chloride 107 Carbon Dioxide 27 Anion Gap 8 BUN 26 H Creatinine 1.1 Creat Clearance w eGFR 50.67 Random Glucose 91 Calcium 8.3 L Total Bilirubin 0.4 AST 39 H ALT 46 Alkaline Phosphatase 91 Total Protein 6.4 Albumin 3.1 L RPR Titer Nonreactive labs noted. 05/08/18 12:17 Assessment: 05/08/18 12:16 WITHDRAWAL SYMPTOMS. Plan: CONTINUE DETOX. INCREASE DAILY PO FLUID INTAKE. D/C IBUPROFEN AND MAGNESIUM-CONTAINING MEDS. FOR ABNORMAL ADMISSION RENAL LAB VALUES.
[2018-05-08 17:20] LABS: URINE APPEARANCE CLOUDY; URINE BILIRUBIN NEGATIVE (<2.0 mg/dL); URINE COLOR YELLOW; URINE GLUCOSE (UA) NEGATIVE (NEGATIVE); URINE KETONE NEGATIVE (NEGATIVE); URINE LEUK ESTERASE 2+ (NEGATIVE); URINE NITRITE NEGATIVE (NEGATIVE); URINE PROTEIN NEGATIVE (NEGATIVE); URINE UROBILINOGEN 4.0 E.U/dl mg/dL (0.2-1.0)
[2018-05-08 17:30] LABS: EPI CELLS FEW /HPF (FEW); URINE MUCUS RARE
[2018-05-08] MEDS: THIAMINE HCL 100 MG TABLET (FP) PO SCH (22:12)
[2018-05-08] MEDS: QUEtiapine FUMARATE 100 MG TABLET (FP) PO SCH (22:13)
[2018-05-09] MEDS ORDERED: METHADONE HCL 5 MG TABLET (FOR DETOX USE ONLY) PO ONE (10:00)
[2018-05-09] MEDS: NICOTINE 14 MG/24 HOURS TOPICAL PATCH TD SCH (10:11)
[2018-05-09] MEDS: PRENATAL VITAMINS W/ FOLIC ACID TABLET (FP) PO SCH (10:11)
[2018-05-09] MEDS: LISINOPRIL 10 MG TABLET (FP) PO SCH (10:11)
--- NOTE | 2018-05-09 12:22 | PN ---
BHS Progress Note (SOAP) Subjective: Tremors, Body Aches, Fatigue. Objective: PATIENT A & O X 2 (UNCERTAIN ABOUT CURRENT DAY / DATE). IN NO ACUTE DISTRESS. PATIENT DENIES ANY URINARY COMPLAINTS (BURNING, PAIN, FREQUENCY, URGENCY, HESITANCY). 05/09/18 12:20 Vital Signs Temperature 96.8 F L 05/09/18 09:11 Pulse Rate 73 05/09/18 09:11 Respiratory Rate 18 05/09/18 09:11 Blood Pressure 102/64 05/09/18 09:11 O2 Sat by Pulse Oximetry (%) Laboratory Tests 05/07/18 05/07/18 05/07/18 07:20 07:20 07:20 WBC 4.0 RBC 4.50 Hgb 12.0 Hct 36.0 MCV 80.1 MCH 26.7 MCHC 33.4 RDW 14.4 Plt Count 146 D MPV 9.5 Sodium 142 Potassium 3.8 Chloride 107 Carbon Dioxide 27 Anion Gap 8 BUN 26 H Creatinine 1.1 Creat Clearance w eGFR 50.67 Random Glucose 91 Calcium 8.3 L Total Bilirubin 0.4 AST 39 H ALT 46 Alkaline Phosphatase 91 Total Protein 6.4 Albumin 3.1 L Urine Color Urine Appearance Urine pH Ur Specific [place] Urine Protein Urine Glucose (UA) Urine Ketones Urine Blood Urine Nitrite Urine Bilirubin Urine Urobilinogen Ur Leukocyte Esterase Urine WBC (Auto) Urine RBC (Auto) Ur Epithelial Cells Urine Mucus RPR Titer Nonreactive 05/08/18 14:30 WBC RBC Hgb Hct MCV MCH MCHC RDW Plt Count MPV Sodium Potassium Chloride Carbon Dioxide Anion Gap BUN Creatinine Creat Clearance w eGFR Random Glucose Calcium Total Bilirubin AST ALT Alkaline Phosphatase Total Protein Albumin Urine Color Yellow Urine Appearance Cloudy Urine pH 6.0 Ur Specific [place] 1.017 Urine Protein Negative Urine Glucose (UA) Negative Urine Ketones Negative Urine Blood Negative Urine Nitrite Negative Urine Bilirubin Negative Urine Urobilinogen 4.0 e.u/dl H Ur Leukocyte Esterase 2+ H D Urine WBC (Auto) 13 Urine RBC (Auto) 1 Ur Epithelial Cells Few Urine Mucus Rare RPR Titer LABS NOTED. 05/09/18 14:37 Assessment: 05/09/18 12:22 WITHDRAWAL SYMPTOMS. Plan: CONTINUE DETOX. REPEAT UA FOR ADMISSION ABNORMALITIES.
[2018-05-09] MEDS: THIAMINE HCL 100 MG TABLET (FP) PO SCH (22:17)
[2018-05-09] MEDS: QUEtiapine FUMARATE 100 MG TABLET (FP) PO SCH (22:17)
[2018-05-10] MEDS ORDERED: METHADONE HCL 10 MG TABLET (FOR DETOX USE ONLY) PO ONE (10:00)
[2018-05-10] MEDS: NICOTINE 14 MG/24 HOURS TOPICAL PATCH TD SCH (10:24)
[2018-05-10] MEDS: LISINOPRIL 10 MG TABLET (FP) PO SCH (10:24)
[2018-05-10] MEDS: PRENATAL VITAMINS W/ FOLIC ACID TABLET (FP) PO SCH (10:25)
[2018-05-10] MEDS ORDERED: cloNIDine HCL 0.1 MG TABLET PO PRN (11:48)
[2018-05-10] MEDS ORDERED: hydrOXYzine PAMOATE 50 MG CAPSULE (FP) PO PRN (11:48)
[2018-05-10 12:52] LABS: URINE APPEARANCE CLEAR; URINE BILIRUBIN NEGATIVE (<2.0 mg/dL); URINE COLOR YELLOW; URINE GLUCOSE (UA) NEGATIVE (NEGATIVE); URINE KETONE NEGATIVE (NEGATIVE); URINE LEUK ESTERASE NEGATIVE (NEGATIVE); URINE NITRITE NEGATIVE (NEGATIVE); URINE PROTEIN NEGATIVE (NEGATIVE); URINE UROBILINOGEN NEGATIVE mg/dL (0.2-1.0)
--- NOTE | 2018-05-10 14:43 | PN ---
[facility] Progress Note (SOAP) Subjective: Pt states feels like she is in withdrawal- vomiting last night- Tigan given O; Vital Signs - 24 hr 05/09/18 05/09/18 05/10/18 17:46 22:00 03:30 Temperature 98 F 98.9 F Pulse Rate 82 82 Respiratory 18 16 18 Rate Blood Pressure 131/74 117/68 05/10/18 05/10/18 05/10/18 06:08 09:16 14:23 Temperature 97.1 F L 98.4 F 98.6 F Pulse Rate 69 76 78 Respiratory 18 20 18 Rate Blood Pressure 107/70 100/66 121/70 Laboratory Tests 05/07/18 05/07/18 05/07/18 07:20 07:20 07:20 WBC 4.0 RBC 4.50 Hgb 12.0 Hct 36.0 MCV 80.1 MCH 26.7 MCHC 33.4 RDW 14.4 Plt Count 146 D MPV 9.5 Sodium 142 Potassium 3.8 Chloride 107 Carbon Dioxide 27 Anion Gap 8 BUN 26 H Creatinine 1.1 Creat Clearance w eGFR 50.67 Random Glucose 91 Calcium 8.3 L Total Bilirubin 0.4 AST 39 H ALT 46 Alkaline Phosphatase 91 Total Protein 6.4 Albumin 3.1 L Urine Color Urine Appearance Urine pH Ur Specific [place] Urine Protein Urine Glucose (UA) Urine Ketones Urine Blood Urine Nitrite Urine Bilirubin Urine Urobilinogen Ur Leukocyte Esterase Urine WBC (Auto) Urine RBC (Auto) Ur Epithelial Cells Urine Mucus RPR Titer Nonreactive 05/08/18 05/10/18 14:30 07:50 WBC RBC Hgb Hct MCV MCH MCHC RDW Plt Count MPV Sodium Potassium Chloride Carbon Dioxide Anion Gap BUN Creatinine Creat Clearance w eGFR Random Glucose Calcium Total Bilirubin AST ALT Alkaline Phosphatase Total Protein Albumin Urine Color Yellow Yellow Urine Appearance Cloudy Clear Urine pH 6.0 7.0 Ur Specific [place] 1.017 1.017 Urine Protein Negative Negative Urine Glucose (UA) Negative Negative Urine Ketones Negative Negative Urine Blood Negative Negative Urine Nitrite Negative Negative Urine Bilirubin Negative Negative Urine Urobilinogen 4.0 e.u/dl H Negative Ur Leukocyte Esterase 2+ H D Negative Urine WBC (Auto) 13 Urine RBC (Auto) 1 Ur Epithelial Cells Few Urine Mucus Rare RPR Titer a/p: continue methadone based detox. Will add clonidine and vistaril prn. Pt to consider MAT- suboxone/methadone
[2018-05-10] MEDS: QUEtiapine FUMARATE 100 MG TABLET (FP) PO SCH (22:03)
[2018-05-10] MEDS: THIAMINE HCL 100 MG TABLET (FP) PO SCH (22:04)
[2018-05-11] MEDS ORDERED: METHADONE HCL 5 MG TABLET (FOR DETOX USE ONLY) PO ONE (06:00)
[2018-05-11 09:17] VITALS: BP 105/64; PULSE 62; TEMP 96.7
--- NOTE | 2018-05-11 12:52 | DS ---
[facility] Detox Discharge Summary Admission Date: 05/06/18 Discharge Date: 05/11/18 - History Present History: Opioid Dependence Additional Comments: 62 years old female admitted on 05/06/18 for opiate withdrawal stabilization completed opiate detox regimen [facility] - Physical Exam Results Vital Signs: Vital Signs Temperature 96.7 F L 05/11/18 09:16 Pulse Rate 62 05/11/18 09:16 Respiratory Rate 18 05/11/18 09:16 Blood Pressure 105/64 05/11/18 09:16 O2 Sat by Pulse Oximetry (%) Pertinent Admission Physical Exam Findings: opiate withdrawal sx Laboratory Last Values WBC 4.0 K/mm3 (4.0-10.0) 05/07/18 07:20 RBC 4.50 M/mm3 (3.60-5.2) 05/07/18 07:20 Hgb 12.0 GM/dL (10.7-15.3) 05/07/18 07:20 Hct 36.0 % (32.4-45.2) 05/07/18 07:20 MCV 80.1 fl (80-96) 05/07/18 07:20 MCH 26.7 pg (25.7-33.7) 05/07/18 07:20 MCHC 33.4 g/dl (32.0-36.0) 05/07/18 07:20 RDW 14.4 % (11.6-15.6) 05/07/18 07:20 Plt Count 146 K/MM3 (134-434) D 05/07/18 07:20 MPV 9.5 fl (7.5-11.1) 05/07/18 07:20 Sodium 142 mmol/L (136-145) 05/07/18 07:20 Potassium 3.8 mmol/L (3.5-5.1) 05/07/18 07:20 Chloride 107 mmol/L (98-107) 05/07/18 07:20 Carbon Dioxide 27 mmol/L (21-32) 05/07/18 07:20 Anion Gap 8 MMOL/L (8-16) 05/07/18 07:20 BUN 26 mg/dL (7-18) H 05/07/18 07:20 Creatinine 1.1 mg/dL (0.55-1.3) 05/07/18 07:20 Creat Clearance w eGFR 50.67 (>60) 05/07/18 07:20 Random Glucose 91 mg/dL (74-106) 05/07/18 07:20 Calcium 8.3 mg/dL (8.5-10.1) L 05/07/18 07:20 Total Bilirubin 0.4 mg/dL (0.2-1) 05/07/18 07:20 AST 39 U/L (15-37) H 05/07/18 07:20 ALT 46 U/L (13-61) 05/07/18 07:20 Alkaline Phosphatase 91 U/L (45-117) 05/07/18 07:20 Total Protein 6.4 g/dl (6.4-8.2) 05/07/18 07:20 Albumin 3.1 g/dl (3.4-5.0) L 05/07/18 07:20 Urine Color Yellow 05/10/18 07:50 Urine Appearance Clear 05/10/18 07:50 Urine pH 7.0 (5.0-8.0) 05/10/18 07:50 Ur Specific [place] 1.017 (1.010-1.035) 05/10/18 07:50 Urine Protein Negative (NEGATIVE) 05/10/18 07:50 Urine Glucose (UA) Negative (NEGATIVE) 05/10/18 07:50 Urine Ketones Negative (NEGATIVE) 05/10/18 07:50 Urine Blood Negative (NEGATIVE) 05/10/18 07:50 Urine Nitrite Negative (NEGATIVE) 05/10/18 07:50 Urine Bilirubin Negative (<2.0 mg/dL) 05/10/18 07:50 Urine Urobilinogen Negative mg/dL (0.2-1.0) 05/10/18 07:50 Ur Leukocyte Esterase Negative (NEGATIVE) 05/10/18 07:50 Urine WBC (Auto) 13 /hpf (3-5) 05/08/18 14:30 Urine RBC (Auto) 1 /hpf (0-3) 05/08/18 14:30 Ur Epithelial Cells Few /HPF (FEW) 05/08/18 14:30 Urine Mucus Rare 05/08/18 14:30 RPR Titer Nonreactive (NONREACTIVE) 05/07/18 07:20 lab noted - Treatment Hospital Course: Detox Protocol Followed, Detoxed Safely, Responded well, Discharged Condition Good, Rehab Referral Accepted Patient has Accepted a Rehab Referral to: [facility] - Medication Discharge Medications: Ambulatory Orders Quetiapine Fumarate [Seroquel] 100 mg PO HS #30 tablet 10/04/16 traZODone HCL [Desyrel -] 100 mg PO HS #30 tablet 10/04/16 Albuterol Sulfate Inhaler - [Ventolin HFA Inhaler -] 2 puff IH Q4H PRN #1 inhaler 05/11/18 Lisinopril 1 tab PO DAILY #14 tablet 05/11/18 - Diagnosis (1) Opioid dependence with withdrawal Status: Acute (2) Asthma Status: Chronic Qualifiers: Asthma severity: mild Asthma persistence: intermittent Asthma complication type: uncomplicated Qualified Code(s): J45.20 - Mild intermittent asthma, uncomplicated (3) HTN (hypertension) Status: Chronic Qualifiers: Hypertension type: essential hypertension Qualified Code(s): I10 - Essential (primary) hypertension (4) Hepatitis C Status: Chronic Qualifiers: Viral hepatitis chronicity: chronic Hepatic coma status: without hepatic coma Qualified Code(s): B18.2 - Chronic viral hepatitis C (5) Nicotine dependence Status: Acute Qualifiers: Nicotine product type: cigarettes Substance use status: in withdrawal Qualified Code(s): F17.213 - Nicotine dependence, cigarettes, with withdrawal (6) Use of cane as ambulatory aid Status: Chronic (7) Substance induced mood disorder Status: Suspected - AMA Did Patient Leave Against Medical Advice: No
== END 2018-05-11 09:30 | disposition home or self-care (01) | DRG 773 ==
LOC: YASAS 17:31 → Y3N 21:23
PROVIDERS: ADMIT Neuromusculoskeletal Medicine & OMM; ATTEND Neuromusculoskeletal Medicine & OMM
PROC: HZ2ZZZZ Detoxification Services for Substance Abuse Treatment (ICD-10-PCS; principal; 2018-05-06)
DX: F11.23 Opioid dependence with withdrawal (principal); F14.20 Cocaine dependence, uncomplicated; F17.213 Nicotine dependence, cigarettes, with withdrawal; F19.24 Other psychoactive substance dependence with psychoactive substance-induced mood disorder; F32.9 Major depressive disorder, single episode, unspecified; I10 Essential (primary) hypertension; J45.20 Mild intermittent asthma, uncomplicated; B18.2 Chronic viral hepatitis C; R01.1 Cardiac murmur, unspecified; R26.2 Difficulty in walking, not elsewhere classified; Z99.89 Dependence on other enabling machines and devices
CPT/HCPCS: 36415; 80053; 81003; 81015; 85027; 86593; J0735

== ENCOUNTER 2018-08-07 17:54 | Inpatient (IN) | payer OTHER ==
[2018-08-07 20:08] VITALS: BMI 26.0
--- NOTE | 2018-08-07 21:08 | HP ---
CIWA Score - Admission Criteria [facility] Guidelines: Admission for Medically Managed Detox: Requires at least one of the followin. CIWA greater than 12 2. Seizures within the past 24 hours 3. Delirium tremens within the past 24 hours 4. Hallucinations within the past 24 hours 5. Acute intervention needed for co occurring medical disorder 6. Acute intervention needed for co occurring psychiatric disorder 7. Severe withdrawal that cannot be handled at a lower level of care (continued vomiting, continued diarrhea, abnormal vital signs) requiring intravenous medication and/or fluids 8. Admission ROS [facility] - HPI Chief Complaint: DEPENDENT ON HEROIN, ETOH, CRACK AND COCAINE Allergies/Adverse Reactions: Allergies Allergy/AdvReac Type Severity Reaction Status Date / Time No Known Allergies Allergy Verified 08/07/18 20:01 History of Present Illness: THE PT. IS REQUESTING ADMISSION TO THE DETOX UNIT AND CAME FOR MEDICAL CLEARANCE AND H AND PE Exam Limitations: No Limitations - Ebola screening Have you traveled outside of the country in the last 21 days: No (N) Have you had contact with anyone from an Ebola affected area: No Do you have a fever: No - Review of Systems Constitutional: See HPI, Loss of Appetite, Malaise EENT: reports: See HPI Respiratory: reports: See HPI, SOB with Exertion Cardiac: reports: See HPI GI: reports: See HPI, Nausea, Poor Appetite, Vomiting, Abdominal cramping : reports: See HPI Musculoskeletal: reports: See HPI, Muscle Pain, Muscle Weakness Integumentary: reports: See HPI, Sweating Neuro: reports: See HPI, Headache, Tremors, Weakness Endocrine: reports: See HPI Hematology: reports: See HPI Psychiatric: reports: Judgement Intact, Orientated x3, Anxious, Depressed Patient History - Patient Medical History Hx Anemia: No Hx Asthma: Yes Hx Chronic Obstructive Pulmonary Disease (COPD): No Hx Cancer: No Hx Cardiac Disorders: No Hx Congestive Heart Failure: No Hx Hypertension: Yes Hx Hypercholesterolemia: No Hx Pacemaker: No HX Cerebrovascular Accident: No Hx Seizures: No Hx Dementia: No Hx Diabetes: No Hx Gastrointestinal Disorders: No Hx Liver Disease: No Hx Genitourinary Disorders: No Hx Sexually Transmitted Disorders: No Hx Renal Disease (ESRD): No Hx Thyroid Disease: No Hx Human Immunodeficiency Virus (HIV): No Hx Hepatitis C: Yes (NO TXMENT) Hx Depression: Yes (and anxiety disorder) Hx Suicide Attempt: No Hx Bipolar Disorder: No Hx Schizophrenia: No - Patient Surgical History Past Surgical History: No Hx Neurologic Surgery: No Hx Cataract Extraction: No Hx Cardiac Surgery: No Hx Lung Surgery: No Hx Breast Surgery: No Hx Breast Biopsy: No Hx Abdominal Surgery: No Hx Appendectomy: No Hx Cholecystectomy: No Hx Genitourinary Surgery: No Hx Section: No Hx Orthopedic Surgery: No Hx Hysterectomy: No Anesthesia Reaction: No - Reproductive History Patient is a Female of Child Bearing Age (11 -55 yrs old): No LMP comment: 10 YRS. AGO Patient : No - Smoking Cessation Smoking history: Current every day smoker Have you smoked in the past 12 months: Yes Aproximately how many cigarettes per day: 5 Cigars Per Day: 0 Hx Chewing Tobacco Use: No Initiated information on smoking cessation: Yes 'Breaking Loose' booklet given: 08/07/18 - Substance & Tx. History Hx Alcohol Use: Yes Hx Substance Use: Yes Substance Use Type: Alcohol, Cocaine, Heroin Hx Substance Use Treatment: Yes - Substances abused Heroin Other (specify): SNIFF Frequency: Daily Amount used: 3 BAGS Age of first use: 21 Date of last use: 08/07/18 Cocaine Substance route: Smoking Frequency: Daily Amount used: 2/20 Age of first use: 21 Date of last use: 08/07/18 Alcohol Substance route: Oral Frequency: Daily Amount used: 1/2 [place] Age of first use: 21 Date of last use: 08/04/18 Crack Substance route: Smoking Frequency: Daily Amount used: $40 Age of first use: 21 Date of last use: 08/07/18 Family Disease History - Family Disease History Family Disease History: Diabetes: Mother, Brother, Other: Father (WAS AN ALCOHOLIC AND ) Admission Physical Exam S - Vital Signs Vital Signs: Vital Signs - 24 hr 08/07/18 19:59 Temperature 97.5 F L Pulse Rate 78 Respiratory 18 Rate Blood Pressure 138/82 - Physical General Appearance: Yes: No Apparent Distress, Appropriately Dressed, Thin, Tremorous, Sweating, Anxious HEENTM: Yes: Hearing grossly Normal, Normocephalic, Normal Voice, [place], Pharynx Normal Respiratory: Yes: Chest Non-Tender, Lungs Clear, Normal Breath Sounds, No Respiratory Distress, No Accessory Muscle Use Neck: Yes: No masses,lesions,Nodules, Supple, Trachea in good position Breast: Yes: Breast Exam Deferred, Axillae without masses Cardiology: Yes: Regular Rhythm, S1, S2, Tachycardia Abdominal: Yes: Normal Bowel Sounds, Non Tender, Flat, Soft Back: Yes: Normal Inspection Musculoskeletal: Yes: full range of Motion, Muscle Pain, Muscle weakness Extremities: Yes: Normal Capillary Refill, Normal Range of Motion, Non-Tender, Tremors Neurological: Yes: crts II-XII NML intact, Fully Oriented, Alert, Motor Strength 5/5, Normal Response, Depressed Affect Integumentary: Yes: Normal Color, Warm, Moist Lymphatic: Yes: Within Normal Limits - Diagnostic (1) Alcohol dependence with uncomplicated withdrawal Current Visit: No Status: Chronic (2) Anxiety Current Visit: No Status: Chronic (3) Cocaine dependence Current Visit: No Status: Chronic Qualifiers: Substance use status: uncomplicated Qualified Code(s): F14.20 - Cocaine dependence, uncomplicated (4) Nicotine dependence Current Visit: No Status: Chronic Qualifiers: Nicotine product type: cigarettes Substance use status: in withdrawal Qualified Code(s): F17.213 - Nicotine dependence, cigarettes, with withdrawal (5) Asthma Current Visit: No Status: Chronic Qualifiers: Asthma severity: mild Asthma persistence: intermittent Asthma complication type: uncomplicated Qualified Code(s): J45.20 - Mild intermittent asthma, uncomplicated (6) Depressive disorder Current Visit: No Status: Chronic (7) HTN (hypertension) Current Visit: No Status: Chronic Qualifiers: Hypertension type: essential hypertension Qualified Code(s): I10 - Essential (primary) hypertension (8) Hepatitis C Current Visit: No Status: Chronic Qualifiers: Viral hepatitis chronicity: chronic Hepatic coma status: without hepatic coma Qualified Code(s): B18.2 - Chronic viral hepatitis C (9) Opioid dependence Current Visit: No Status: Chronic Cleared for Admission [facility] - Detox or Rehab S Level of Care: Medically Supervised Detox Regimen/Protocol: Methadone/Librium Inpatient Rehab Admission - Rehab Decision to Admit Inpatient rehab admission?: No
[2018-08-07] MEDS ORDERED: IBUPROFEN 400 MG TABLET (FP) PO PRN (21:12)
[2018-08-07] MEDS ORDERED: NICOTINE POLACRILEX 2 MG GUM BUC PRN (21:12)
[2018-08-07] MEDS ORDERED: ACETAMINOPHEN 325 MG TABLET (FP) PO PRN ×2 (21:12)
[2018-08-07] MEDS ORDERED: QUEtiapine FUMARATE 100 MG TABLET (FP) PO PRN (21:12)
[2018-08-07] MEDS ORDERED: traZODone HCL 100 MG TABLET (FP) PO PRN (21:12)
[2018-08-07] MEDS ORDERED: MENTHOL/PHENOL 1 EACH UD MM PRN (21:12)
[2018-08-07] MEDS ORDERED: MAGNESIUM HYDROX 2400MG/30ML ORAL SUSPENSION 30 ML CUP PO PRN (21:12)
[2018-08-07] MEDS ORDERED: hydrOXYzine PAMOATE 25 MG CAPSULE (FP) PO PRN (21:12)
[2018-08-07] MEDS ORDERED: METHADONE HCL 10 MG TABLET (FOR DETOX USE ONLY) PO ONE ×2 (21:12→23:00)
[2018-08-07] MEDS ORDERED: BISMUTH SUBSALICYLATE 524 MG/30 ML UD PO PRN (21:12)
[2018-08-07] MEDS ORDERED: MAG HYDROX/AL HYDROX/SIMETH 30 ML UNIT-DOSE CUP PO PRN (21:12)
[2018-08-07] MEDS ORDERED: METHOCARBAMOL 500 MG TABLET PO PRN (21:12)
[2018-08-07] MEDS ORDERED: chlordiazePOXIDE HCL 25 MG CAPSULE PO ONE (21:12)
[2018-08-07] MEDS ORDERED: MAGNESIUM CITRATE 300 ML BOTTLE PO PRN (21:12)
[2018-08-07] MEDS ORDERED: chlordiazePOXIDE HCL 10 MG CAPSULE PO PRN (21:12)
[2018-08-07] MEDS ORDERED: cloNIDine HCL 0.1 MG TABLET PO PRN (21:12)
[2018-08-07] MEDS ORDERED: MELATONIN 5 MG TABLETS PO PRN (21:12)
[2018-08-07] MEDS ORDERED: ALBUTEROL SO4 8 GM HFA INHALER IH PRN (21:15)
[2018-08-07] MEDS: chlordiazePOXIDE HCL 25 MG CAPSULE PO SCH (22:56)
[2018-08-07] MEDS: LISINOPRIL 10 MG TABLET (FP) PO SCH (22:56)
[2018-08-07] MEDS: THIAMINE HCL 100 MG TABLET (FP) PO SCH (22:57)
[2018-08-08] MEDS: chlordiazePOXIDE HCL 25 MG CAPSULE PO SCH ×2 (05:17→15:00)
[2018-08-08 09:50] LABS: ALBUMIN 2.6 g/dl (3.4-5.0); ALK PHOS 74 U/L (45-117); ANION GAP 6 MMOL/L (8-16); BILIRUBIN,TOTAL 0.4 mg/dL (0.2-1); BLOOD UREA NITROGEN 19 mg/dL (7-18); CALCIUM 8.2 mg/dL (8.5-10.1); CHLORIDE 106 mmol/L (98-107); CO2 29 mmol/L (21-32); CREATININE 0.9 mg/dL (0.55-1.3); GLUCOSE,RANDOM 101 mg/dL (74-106); POTASSIUM 4.3 mmol/L (3.5-5.1); SGOT/AST 28 U/L (15-37); SGPT/ALT 26 U/L (13-61); SODIUM 140 mmol/L (136-145); TOT PROT 5.7 g/dl (6.4-8.2)
[2018-08-08 09:55] LABS: HEMATOCRIT 36.5 % (32.4-45.2); HEMOGLOBIN 11.8 GM/dL (10.7-15.3); MCH 25.4 pg (25.7-33.7); MCHC 32.2 g/dl (32.0-36.0); MEAN CELL VOLUME 78.9 fl (80-96); MEAN PLT VOLUME 9.4 fl (7.5-11.1); PLATELET COUNT 149 K/MM3 (134-434); RBC 4.62 M/mm3 (3.60-5.2); RDW 14.2 % (11.6-15.6); WHITE BLOOD COUNT 3.1 K/mm3 (4.0-10.0)
[2018-08-08] MEDS ORDERED: METHADONE HCL 5 MG TABLET (FOR DETOX USE ONLY) PO ONE (10:00)
[2018-08-08] MEDS: LISINOPRIL 10 MG TABLET (FP) PO SCH (10:28)
[2018-08-08] MEDS: PRENATAL VITAMINS W/ FOLIC ACID TABLET (FP) PO SCH (10:28)
[2018-08-08] MEDS: NICOTINE 14 MG/24 HOURS TOPICAL PATCH TD SCH (10:29)
--- NOTE | 2018-08-08 14:41 | PN ---
[facility] CIWA - CIWA Score Nausea/Vomitin-Mild Nausea/No Vomiting Muscle Tremors: 4-Moderate,w/Arms Extend Anxiety: 3 Agitation: 3 Paroxysmal Sweats: 1-Minimal Palms Moist Orientation: 2-Disoriented Date<2 days Tacttile Disturbances: 0-None Auditory Disturbances: 0-None Visual Disturbances: 0-None Headache: 0-None Present CIWA-Ar Total Score: 14 S COWS - Scale Resting Pulse: 0= [place] 80 or Below Sweatin= Chills/Flushing Restless Observation: 0= Sits Still Pupil Size: 0= Normal to Room Light Bone or Joint Aches: 1= Mild Discomfort Runny Nose/ Eye Tearin= Nasal Congestion GI Upset > 30mins: 1= Stomach Cramp Tremor Observation of Outstretched Hands: 2= Slight Tremor Visible Yawning Observation: 2= >3x During Session Anxiety or Irritability: 2=Irritable/Anxious Goose Flesh Skin: 0=Smooth Skin COWS Score: 10 [facility] Progress Note (SOAP) Subjective: doing ok with librium and methadone detox regimen Objective: 08/08/18 16:42 Vital Signs Temperature 99.1 F 08/08/18 13:27 Pulse Rate 73 08/08/18 13:27 Respiratory Rate 18 08/08/18 13:27 Blood Pressure 119/63 08/08/18 13:27 O2 Sat by Pulse Oximetry (%) Laboratory Last Values WBC 3.1 K/mm3 (4.0-10.0) L 08/08/18 07:00 RBC 4.62 M/mm3 (3.60-5.2) 08/08/18 07:00 Hgb 11.8 GM/dL (10.7-15.3) 08/08/18 07:00 Hct 36.5 % (32.4-45.2) 08/08/18 07:00 MCV 78.9 fl (80-96) L 08/08/18 07:00 MCH 25.4 pg (25.7-33.7) L 08/08/18 07:00 MCHC 32.2 g/dl (32.0-36.0) 08/08/18 07:00 RDW 14.2 % (11.6-15.6) 08/08/18 07:00 Plt Count 149 K/MM3 (134-434) 08/08/18 07:00 MPV 9.4 fl (7.5-11.1) 08/08/18 07:00 Sodium 140 mmol/L (136-145) 08/08/18 07:00 Potassium 4.3 mmol/L (3.5-5.1) 08/08/18 07:00 Chloride 106 mmol/L (98-107) 08/08/18 07:00 Carbon Dioxide 29 mmol/L (21-32) 08/08/18 07:00 Anion Gap 6 MMOL/L (8-16) L 08/08/18 07:00 BUN 19 mg/dL (7-18) H 08/08/18 07:00 Creatinine 0.9 mg/dL (0.55-1.3) 08/08/18 07:00 Creat Clearance w eGFR 63.87 (>60) 08/08/18 07:00 Random Glucose 101 mg/dL (74-106) 08/08/18 07:00 Calcium 8.2 mg/dL (8.5-10.1) L 08/08/18 07:00 Total Bilirubin 0.4 mg/dL (0.2-1) 08/08/18 07:00 AST 28 U/L (15-37) 08/08/18 07:00 ALT 26 U/L (13-61) 08/08/18 07:00 Alkaline Phosphatase 74 U/L (45-117) 08/08/18 07:00 Total Protein 5.7 g/dl (6.4-8.2) L 08/08/18 07:00 Albumin 2.6 g/dl (3.4-5.0) L 08/08/18 07:00 RPR Titer Nonreactive (NONREACTIVE) 08/08/18 07:00 lab noted Assessment: 08/08/18 16:42 alcohol and opiate withdrawal sx Plan: continue detox
[2018-08-08] MEDS: chlordiazePOXIDE 5 MG CAPSULE PO SCH (22:03)
[2018-08-08] MEDS: THIAMINE HCL 100 MG TABLET (FP) PO SCH (22:04)
[2018-08-09] MEDS: chlordiazePOXIDE 5 MG CAPSULE PO SCH ×2 (05:36→14:04)
[2018-08-09] MEDS ORDERED: METHADONE HCL 10 MG TABLET (FOR DETOX USE ONLY) PO ONE (10:00)
[2018-08-09] MEDS: PRENATAL VITAMINS W/ FOLIC ACID TABLET (FP) PO SCH (10:41)
[2018-08-09] MEDS: NICOTINE 14 MG/24 HOURS TOPICAL PATCH TD SCH (10:42)
[2018-08-09] MEDS: LISINOPRIL 10 MG TABLET (FP) PO SCH (10:42)
--- NOTE | 2018-08-09 11:01 | PN ---
[facility] CIWA - CIWA Score Nausea/Vomitin-Mild Nausea/No Vomiting Muscle Tremors: 3 Anxiety: 2 Agitation: 2 Paroxysmal Sweats: 1-Minimal Palms Moist Orientation: 0-Oriented Tacttile Disturbances: 0-None Auditory Disturbances: 0-None Visual Disturbances: 0-None Headache: 1-Very Mild CIWA-Ar Total Score: 10 [facility] COWS - Scale Resting Pulse: 1= [place] 81-100 Sweatin= Chills/Flushing Restless Observation: 1= Difficult to Sit Still Pupil Size: 0= Normal to Room Light Bone or Joint Aches: 1= Mild Discomfort Runny Nose/ Eye Tearin= Nasal Congestion GI Upset > 30mins: 1= Stomach Cramp Tremor Observation of Outstretched Hands: 1= Tremor [place], Not Seen Yawning Observation: 1= 1-2x During Session Anxiety or Irritability: 1=Feels Anxious/Irritable Goose Flesh Skin: 0=Smooth Skin COWS Score: 9 [facility] Progress Note (SOAP) Subjective: mild body aches otherwise doing ok today Objective: 08/09/18 11:00 Vital Signs Temperature 97.0 F L 08/09/18 10:19 Pulse Rate 87 08/09/18 10:19 Respiratory Rate 18 08/09/18 10:19 Blood Pressure 130/92 08/09/18 10:19 O2 Sat by Pulse Oximetry (%) Laboratory Last Values WBC 3.1 K/mm3 (4.0-10.0) L 08/08/18 07:00 RBC 4.62 M/mm3 (3.60-5.2) 08/08/18 07:00 Hgb 11.8 GM/dL (10.7-15.3) 08/08/18 07:00 Hct 36.5 % (32.4-45.2) 08/08/18 07:00 MCV 78.9 fl (80-96) L 08/08/18 07:00 MCH 25.4 pg (25.7-33.7) L 08/08/18 07:00 MCHC 32.2 g/dl (32.0-36.0) 08/08/18 07:00 RDW 14.2 % (11.6-15.6) 08/08/18 07:00 Plt Count 149 K/MM3 (134-434) 08/08/18 07:00 MPV 9.4 fl (7.5-11.1) 08/08/18 07:00 Sodium 140 mmol/L (136-145) 08/08/18 07:00 Potassium 4.3 mmol/L (3.5-5.1) 08/08/18 07:00 Chloride 106 mmol/L (98-107) 08/08/18 07:00 Carbon Dioxide 29 mmol/L (21-32) 08/08/18 07:00 Anion Gap 6 MMOL/L (8-16) L 08/08/18 07:00 BUN 19 mg/dL (7-18) H 08/08/18 07:00 Creatinine 0.9 mg/dL (0.55-1.3) 08/08/18 07:00 Creat Clearance w eGFR 63.87 (>60) 08/08/18 07:00 Random Glucose 101 mg/dL (74-106) 08/08/18 07:00 Calcium 8.2 mg/dL (8.5-10.1) L 08/08/18 07:00 Total Bilirubin 0.4 mg/dL (0.2-1) 08/08/18 07:00 AST 28 U/L (15-37) 08/08/18 07:00 ALT 26 U/L (13-61) 08/08/18 07:00 Alkaline Phosphatase 74 U/L (45-117) 08/08/18 07:00 Total Protein 5.7 g/dl (6.4-8.2) L 08/08/18 07:00 Albumin 2.6 g/dl (3.4-5.0) L 08/08/18 07:00 RPR Titer Nonreactive (NONREACTIVE) 08/08/18 07:00 lab noted Assessment: 08/09/18 11:01 withdrawal sx Plan: continue detox
[2018-08-09] MEDS ORDERED: chlordiazePOXIDE HCL 10 MG CAPSULE PO PRN (21:00)
[2018-08-09] MEDS: chlordiazePOXIDE HCL 10 MG CAPSULE PO SCH (22:11)
[2018-08-09] MEDS: THIAMINE HCL 100 MG TABLET (FP) PO SCH (22:11)
[2018-08-10] MEDS: chlordiazePOXIDE HCL 10 MG CAPSULE PO SCH ×2 (05:08→13:38)
[2018-08-10] MEDS ORDERED: METHADONE HCL 5 MG TABLET (FOR DETOX USE ONLY) PO ONE (06:00)
[2018-08-10] MEDS: LISINOPRIL 10 MG TABLET (FP) PO SCH (10:10)
[2018-08-10] MEDS: NICOTINE 14 MG/24 HOURS TOPICAL PATCH TD SCH (10:10)
[2018-08-10] MEDS: PRENATAL VITAMINS W/ FOLIC ACID TABLET (FP) PO SCH (10:10)
--- NOTE | 2018-08-10 14:15 | PN ---
[facility] CIWA - CIWA Score Nausea/Vomitin-No Nausea/No Vomiting Muscle Tremors: 2 Anxiety: 1-Mildly Anxious Agitation: 1-Slight > Activity Paroxysmal Sweats: 1-Minimal Palms Moist Orientation: 0-Oriented Tacttile Disturbances: 0-None Auditory Disturbances: 0-None Visual Disturbances: 0-None Headache: 0-None Present CIWA-Ar Total Score: 5 [facility] COWS - Scale Resting Pulse: 0= [place] 80 or Below Sweatin= Chills/Flushing Restless Observation: 0= Sits Still Pupil Size: 0= Normal to Room Light Bone or Joint Aches: 1= Mild Discomfort Runny Nose/ Eye Tearin= Nasal Congestion GI Upset > 30mins: 0= None Tremor Observation of Outstretched Hands: 1= Tremor [place], Not Seen Yawning Observation: 0= None Anxiety or Irritability: 1=Feels Anxious/Irritable Goose Flesh Skin: 0=Smooth Skin COWS Score: 5 S Progress Note (SOAP) Subjective: feeling better less tremor hesitate to discuss aftercare with staff Objective: 08/10/18 14:15 Vital Signs Temperature 98.2 F 08/10/18 13:58 Pulse Rate 70 08/10/18 13:58 Respiratory Rate 18 08/10/18 13:58 Blood Pressure 122/80 08/10/18 13:58 O2 Sat by Pulse Oximetry (%) Laboratory Last Values WBC 3.1 K/mm3 (4.0-10.0) L 08/08/18 07:00 RBC 4.62 M/mm3 (3.60-5.2) 08/08/18 07:00 Hgb 11.8 GM/dL (10.7-15.3) 08/08/18 07:00 Hct 36.5 % (32.4-45.2) 08/08/18 07:00 MCV 78.9 fl (80-96) L 08/08/18 07:00 MCH 25.4 pg (25.7-33.7) L 08/08/18 07:00 MCHC 32.2 g/dl (32.0-36.0) 08/08/18 07:00 RDW 14.2 % (11.6-15.6) 08/08/18 07:00 Plt Count 149 K/MM3 (134-434) 08/08/18 07:00 MPV 9.4 fl (7.5-11.1) 08/08/18 07:00 Sodium 140 mmol/L (136-145) 08/08/18 07:00 Potassium 4.3 mmol/L (3.5-5.1) 08/08/18 07:00 Chloride 106 mmol/L (98-107) 08/08/18 07:00 Carbon Dioxide 29 mmol/L (21-32) 08/08/18 07:00 Anion Gap 6 MMOL/L (8-16) L 08/08/18 07:00 BUN 19 mg/dL (7-18) H 08/08/18 07:00 Creatinine 0.9 mg/dL (0.55-1.3) 08/08/18 07:00 Creat Clearance w eGFR 63.87 (>60) 08/08/18 07:00 Random Glucose 101 mg/dL (74-106) 08/08/18 07:00 Calcium 8.2 mg/dL (8.5-10.1) L 08/08/18 07:00 Total Bilirubin 0.4 mg/dL (0.2-1) 08/08/18 07:00 AST 28 U/L (15-37) 08/08/18 07:00 ALT 26 U/L (13-61) 08/08/18 07:00 Alkaline Phosphatase 74 U/L (45-117) 08/08/18 07:00 Total Protein 5.7 g/dl (6.4-8.2) L 08/08/18 07:00 Albumin 2.6 g/dl (3.4-5.0) L 08/08/18 07:00 RPR Titer Nonreactive (NONREACTIVE) 08/08/18 07:00 lab noted encourage the patient to follow up with primary care provider or community health services for low wbc 08/10/18 14:17 Assessment: 08/10/18 14:18 mild alcohol and opiate withdrawal sx Plan: continue detox bring in medication list and lab report to aftercare appointment and follow up with primary care provider in the community
[2018-08-10 17:16] VITALS: BP 128/84; PULSE 76; TEMP 98.6
--- NOTE | 2018-08-10 17:26 | DS ---
[facility] Detox Discharge Summary Admission Date: 08/07/18 Discharge Date: 08/10/18 - History Present History: Alcohol Dependence, Opioid Dependence Pertinent Past History: Pt admitted for opioid and alcohol detox. Pt completed opioid detox protocol. Pt leaving a day earlier as she has a ride for today and will not be able to get it tomorrow. - Physical Exam Results Vital Signs: Vital Signs Temperature 98.6 F 08/10/18 17:15 Pulse Rate 76 08/10/18 17:15 Respiratory Rate 19 08/10/18 17:15 Blood Pressure 128/84 08/10/18 17:15 O2 Sat by Pulse Oximetry (%) - Medication Discharge Medications: Ambulatory Orders Quetiapine Fumarate [Seroquel] 100 mg PO HS #30 tablet 10/04/16 traZODone HCL [Desyrel -] 100 mg PO HS #30 tablet 10/04/16 Albuterol Sulfate Inhaler - [Ventolin HFA Inhaler -] 2 puff IH Q4H PRN #1 inhaler 08/10/18 Lisinopril 1 tab PO DAILY #14 tablet 08/10/18 - AMA Did Patient Leave Against Medical Advice: No
== END 2018-08-10 17:54 | disposition home or self-care (01) | DRG 773 ==
LOC: YASAS 17:54 → Y3N 21:33
PROVIDERS: ADMIT Surgery; ATTEND Surgery
PROC: HZ2ZZZZ Detoxification Services for Substance Abuse Treatment (ICD-10-PCS; principal; 2018-08-07)
DX: F10.230 Alcohol dependence with withdrawal, uncomplicated (principal); F11.23 Opioid dependence with withdrawal; F14.20 Cocaine dependence, uncomplicated; F17.213 Nicotine dependence, cigarettes, with withdrawal; F41.8 Other specified anxiety disorders; F32.9 Major depressive disorder, single episode, unspecified; I10 Essential (primary) hypertension; J45.20 Mild intermittent asthma, uncomplicated; B18.2 Chronic viral hepatitis C
CPT/HCPCS: 36415; 80053; 85027; 86593; J0735